=== PATIENT | female | born 1980 | race Caucasian/White ===

== ENCOUNTER 2019-09-13 21:35 | Emergency (ER) | payer OTHER ==
[~2019-09-13] VITALS: Ht 152.4 cm; Wt 59.0 kg
== END 2019-09-13 23:44 | disposition home or self-care (01) ==
LOC: ER 21:35
DX: S61.222A Laceration with foreign body of right middle finger without damage to nail, initial encounter (principal); S61.224A Laceration with foreign body of right ring finger without damage to nail, initial encounter; W45.8XXA Other foreign body or object entering through skin, initial encounter; Y93.89 Activity, other specified; Y92.89 Other specified places as the place of occurrence of the external cause; Y99.8 Other external cause status